=== PATIENT | female | born 1945 | race Caucasian/White ===

== ENCOUNTER 2018-09-01 09:04 | Day surgery (SDC) | payer OTHER ==
[2018-08-31 14:27] VITALS: BMI 25.4
[2018-09-01 10:56] VITALS: TEMP 97
[2018-09-01] MEDS ORDERED: ACETAMINOPHEN 325 MG TABLET (FP) ONE (11:13)
[2018-09-01 11:37] VITALS: PULSE 66
[2018-09-01 13:15] VITALS: BP 123/82
--- NOTE | 2018-09-04 14:46 | PATH ---
Surgical Pathology Report Patient Name: IWONA VEGA [facility]. Rec. #: [id number] /Age/Gender: 1945 (Age: 73) / F Account: [id number] Location: U-ENDOSCOPY Taken: 09/01/2018 Received: 09/01/2018 Reported: 09/04/2018 Physicians: Yael Patino M.D. Specimen(s) Received A: RECTAL POLYP B: POLYP SIGMOID Clinical History History of colon adenoma Postoperative diagnosis: Diverticulosis, polyp Final Diagnosis A. RECTAL POLYP, BIOPSY: HYPERPLASTIC POLYP. B. SIGMOID POLYP, BIOPSY: POLYPOID COLONIC MUCOSA WITH PROMINENT LYMPHOID AGGREGATE. Electronically Signed Donya Sandoval M.D. Gross Description A. Received in formalin, labeled "rectal polyp" are 2 sellers, irregular portions of soft tissue averaging 0.2 cm. in greatest dimension. The specimens are submitted in toto in one cassette. B. Received in formalin, labeled "biopsy sigmoid polyp" are 2 sellers, irregular portions of soft tissue measuring 0.4 and 0.7 cm. in greatest dimension. The specimens are submitted in toto in one cassette. DL/09/01/2018 saudi09/01/2018
== END 2018-09-01 12:18 | disposition home or self-care (01) ==
LOC: JASU-ENDO 09:04
PROVIDERS: ATTEND Internal Medicine Gastroenterology
PROC: 0DBN8ZX Excision of Sigmoid Colon, Via Natural or Artificial Opening Endoscopic, Diagnostic (ICD-10-PCS; 2018-09-01)
PROC: 0DBP8ZX Excision of Rectum, Via Natural or Artificial Opening Endoscopic, Diagnostic (ICD-10-PCS; principal; 2018-09-01 12:15)
DX: Z12.11 Encounter for screening for malignant neoplasm of colon (principal); Z86.010 Personal history of colon polyps; K62.1 Rectal polyp; D12.5 Benign neoplasm of sigmoid colon; K64.8 Other hemorrhoids; K57.30 Diverticulosis of large intestine without perforation or abscess without bleeding; K63.89 Other specified diseases of intestine
CPT/HCPCS: 88305-TC